=== PATIENT | male | born 1945 | race Caucasian/White ===

== ENCOUNTER 2017-05-24 06:09 | Day surgery (SDC) | payer MEDICARE ==
[~2017-05-24] VITALS: Ht 185.4 cm; Wt 78.5 kg
[~2017-05-24 06:09] MED LIST: AMLO2.5T PO; ASPI-1197 PO; PRAV40TA3 PO
[2017-05-24] MEDS ORDERED: SODIUM CHLORIDE 0.9% 1000ML 1,000 ML IV ONE (06:43)
[2017-05-24 07:02] VITALS: BP 146/78
[2017-05-24] MEDS ORDERED: PROPOFOL 10 MG/ML 20ML VIAL IV ONE ×2 (07:29→07:46)
[2017-05-24] MEDS ORDERED: FENTANYL CITRATE PF 50 MCG/1 ML 2ML VIAL ONE (07:30)
[2017-05-24] MEDS ORDERED: GLYCOPYRROLATE 0.2 MG/ML 5 ML VIAL ONE (07:30)
[2017-05-24] MEDS ORDERED: LIDOCAINE HCL 2% 20ML ONE (07:30)
== END 2017-05-24 08:35 | disposition home or self-care (01) ==
LOC: DAH 06:09
PROVIDERS: ATTEND Internal Medicine Gastroenterology
DX: D12.3 Benign neoplasm of transverse colon (principal); K57.30 Diverticulosis of large intestine without perforation or abscess without bleeding; I10 Essential (primary) hypertension; E78.5 Hyperlipidemia, unspecified; Z80.0 Family history of malignant neoplasm of digestive organs
CPT/HCPCS: 45380; 93005; A4606; J2704 ×2; J3010; J3490 ×2; J7030

== ENCOUNTER → 2019-12-19 | Outpatient (CLI) | payer MEDICARE ==
[~2019-12-19] MED LIST changes: -AMLO2.5T PO; +AMLO2.5T4 PO
== END | disposition home or self-care (01) ==
LOC: SHCH 10:22
PROVIDERS: ATTEND Internal Medicine Cardiovascular Disease
DX: I48.0 Paroxysmal atrial fibrillation (principal)
CPT/HCPCS: 93306; 93356

== ENCOUNTER → 2019-12-29 | Outpatient (CLI) | payer OTHER | END | disposition home or self-care (01) | LOC: OIH 12:12 | PROVIDERS: ATTEND Internal Medicine Cardiovascular Disease | DX: Z13.6 Encounter for screening for cardiovascular disorders (principal) | CPT/HCPCS: 75571 ==

== ENCOUNTER → 2020-01-01 | Outpatient (CLI) | payer MEDICARE ==
[~2020-01-01] MED LIST changes: +REGADENOSON 0.4 MG/5 ML PF SYG IVP SCH
== END | disposition home or self-care (01) ==
LOC: SHCH 11:42
PROVIDERS: ATTEND Internal Medicine Cardiovascular Disease
DX: I21.29 ST elevation (STEMI) myocardial infarction involving other sites (principal); I21.11 ST elevation (STEMI) myocardial infarction involving right coronary artery; I25.10 Atherosclerotic heart disease of native coronary artery without angina pectoris
CPT/HCPCS: 78452; 93017; 96374; A9500 ×2; J2785

== ENCOUNTER 2022-04-15 12:59 | Observation (INO) | payer OTHER ==
[~2022-04-15] VITALS: Ht 185.4 cm; Wt 80.8 kg
[~2022-04-15 12:59] MED LIST changes: -REGADENOSON 0.4 MG/5 ML PF SYG IVP SCH
[2022-04-15 13:27] LABS: BASOPHILS % (AUTO) 0.5 % (0.0-5.0); EOSINOPHILS % (AUTO) 0.6 % (0.0-8.0); HEMATOCRIT 42.4 % (42-54); LYMPHOCYTES % (AUTO) 26.1 % (21.0-51.0); MEAN CORPUSCULAR HEMOGLOBIN 30.9 pg (27.0-33.0); MEAN CORPUSCULAR HGB CONC 35.6 g/dL (32.0-36.0); MEAN CORPUSCULAR VOLUME 86.9 fL (79-99); MONOCYTES % (AUTO) 8.7 % (3.0-13.0); NEUTROPHILS % (AUTO) 63.8 % (40.0-77.0); PLATELET COUNT (AUTO) 325 K/uL (130-400); RED BLOOD CELL COUNT(AUTO) 4.88 MIL/uL (4.50-6.20); RED CELL DISTRIBUTION WIDTH 11.8 % (11.0-15.5); WHITE BLOOD COUNT (AUTO) 12.5 K/uL (4.8-10.8)
[2022-04-15 13:37] LABS: CREATININE 0.9 mg/dL (0.5-1.5); POTASSIUM 3.7 mmol/L (3.5-5.1)
[2022-04-15 13:47] LABS: ALBUMIN 4.2 g/dL (3.5-5.0); MAGNESIUM 2.1 mg/dL (1.80-2.40)
[2022-04-15 13:54] LABS: B-TYPE NATRIURETIC PEPTIDE 86 pg/mL (0-100)
[2022-04-15] MEDS ORDERED: APIX5TAB PO (15:23)
[2022-04-15] MEDS ORDERED: SOTA80TA PO (15:23)
[2022-04-15] MEDS ORDERED: EVOL140P3 SQ (15:23)
[2022-04-15] MEDS ORDERED: AMLO-257 PO (15:23)
[2022-04-15] MEDS ORDERED: EZET10TA48 PO (15:23)
[2022-04-15] MEDS ORDERED: METO-408 PO (15:23)
[2022-04-15 18:28] LABS: THYROID STIMULATING HORMONE 2.43 uIU/mL (0.36-3.74)
[2022-04-15 18:29] LABS: ALCOHOL, BLOOD < 3 mg/dL (0-10)
[2022-04-15 18:54] LABS: APPEARANCE,URINE CLEAR (CLEAR); BILIRUBIN,URINE NEGATIVE (NEGATIVE); COLOR,URINE COLORLESS (YELLOW); GLUCOSE, URINE (UA) NEGATIVE (NEGATIVE); KETONES,URINE NEGATIVE (NEGATIVE); LEUKOCYTE ESTERASE ,URINE NEGATIVE Leu/uL (NEGATIVE); NITRATE,URINE NEGATIVE (NEGATIVE); PH,URINE 6.5 (5.0-8.0); PROTEIN,URINE NEGATIVE (NEGATIVE); SODIUM,URINE RANDOM 26 mmol/l (40-220); UROBILINOGEN,URINE 0.2 mg/dL (0.2-1.0)
[2022-04-15 19:04] LABS: RBC,URINE 0-1 /HPF (0-1); WBC,URINE 0-1 /HPF (0-1)
[2022-04-15] MEDS: SOTALOL HCL 80 MG TABLET PO SCH (19:55)
[2022-04-15] MEDS: METOPROLOL SUCCINATE 25 MG TAB.SR.24H PO SCH (19:55)
[2022-04-15] MEDS: APIXABAN 5 MG TABLET PO SCH (19:55)
[2022-04-15] MEDS ORDERED: DIPHENHYDRAMINE HCL 25 MG CAPSULE PO ONE (21:00)
[2022-04-16] MEDS ORDERED: DIPHENHYDRAMINE HCL 25 MG CAPSULE PO ONE (04:00)
[2022-04-16 05:35] VITALS: BP 150/129
[2022-04-16 07:11] LABS: BASOPHILS % (AUTO) 1.2 % (0.0-5.0); EOSINOPHILS % (AUTO) 2.2 % (0.0-8.0); HEMATOCRIT 43.8 % (42-54); LYMPHOCYTES % (AUTO) 23.8 % (21.0-51.0); MEAN CORPUSCULAR HEMOGLOBIN 30.6 pg (27.0-33.0); MEAN CORPUSCULAR HGB CONC 34.7 g/dL (32.0-36.0); MEAN CORPUSCULAR VOLUME 88.1 fL (79-99); MONOCYTES % (AUTO) 8.8 % (3.0-13.0); NEUTROPHILS % (AUTO) 63.5 % (40.0-77.0); PLATELET COUNT (AUTO) 310 K/uL (130-400); RED BLOOD CELL COUNT(AUTO) 4.97 MIL/uL (4.50-6.20); RED CELL DISTRIBUTION WIDTH 12.1 % (11.0-15.5); WHITE BLOOD COUNT (AUTO) 8.5 K/uL (4.8-10.8)
[2022-04-16 07:38] LABS: ALBUMIN 4.2 g/dL (3.5-5.0); CREATININE 0.7 mg/dL (0.5-1.5); MAGNESIUM 2.1 mg/dL (1.80-2.40); POTASSIUM 3.9 mmol/L (3.5-5.1); TOTAL PROTEIN, SERUM 7.9 g/dL (6.0-8.3)
[2022-04-16 08:15] VITALS: BP 155/78
[2022-04-16] MEDS: METOPROLOL SUCCINATE 25 MG TAB.SR.24H PO SCH (09:40)
[2022-04-16] MEDS: APIXABAN 5 MG TABLET PO SCH (09:41)
[2022-04-16] MEDS: SOTALOL HCL 80 MG TABLET PO SCH (09:42)
[2022-04-16] MEDS ORDERED: METO-408 PO (11:03)
[2022-04-16] MEDS ORDERED: AMLODIPINE 5 MG TAB PO SCH (11:30)
[2022-04-16 12:10] VITALS: BP 136/75
== END 2022-04-16 12:55 | disposition home or self-care (01) ==
LOC: EDH 12:59 → EDHIP 17:45 → 4AH 04-16 06:10
PROVIDERS: ADMIT Internal Medicine; ATTEND Internal Medicine
DX: I48.0 Paroxysmal atrial fibrillation (principal); E87.1 Hypo-osmolality and hyponatremia; I10 Essential (primary) hypertension; D72.829 Elevated white blood cell count, unspecified; R55 Syncope and collapse; I49.9 Cardiac arrhythmia, unspecified; I25.10 Atherosclerotic heart disease of native coronary artery without angina pectoris; E78.5 Hyperlipidemia, unspecified; I49.3 Ventricular premature depolarization; Z79.01 Long term (current) use of anticoagulants; Z79.899 Other long term (current) drug therapy
CPT/HCPCS: 99285; 84443; 83735 ×2; 84484; 80053 ×2; 84300; 83880; 85025 ×2; 83930; 83935; 81001; 36415 ×2; 71045; 93005; 84145; Q0163; G0378 ×19

== ENCOUNTER → 2022-05-30 | Outpatient (CLI) | payer OTHER ==
[~2022-05-30] MED LIST changes: +AEC81 PO; -AMLO2.5T4 PO; +APIX5TAB PO; -ASPI-1197 PO; +CALC-1125 PO; +EVOL140P3 SQ; +EZET10TA48 PO; +FISH1CAP27 PO; +PRAV20TA4 PO; -PRAV40TA3 PO; +UBID50TA3 PO; +VERA360C2 PO; +VITAMIN D; +VITAMIN D PO
== END | disposition home or self-care (01) ==
LOC: RAH 08:21
PROVIDERS: ATTEND Internal Medicine
DX: S32.000A Wedge compression fracture of unspecified lumbar vertebra, initial encounter for closed fracture (principal); M54.50 Low back pain, unspecified; M47.817 Spondylosis without myelopathy or radiculopathy, lumbosacral region; M48.061 Spinal stenosis, lumbar region without neurogenic claudication; X58.XXXA Exposure to other specified factors, initial encounter; Y93.89 Activity, other specified; Y92.89 Other specified places as the place of occurrence of the external cause; Y99.8 Other external cause status
CPT/HCPCS: 72148; 76700

== ENCOUNTER 2024-02-20 06:59 | Day surgery (SDC) | payer OTHER ==
[2024-02-19 12:18] LABS: BASOPHILS # (AUTO) 0.08 K/uL (0.00-0.20); BASOPHILS % (AUTO) 0.9 % (0.0-5.0); EOSINOPHILS % (AUTO) 3.6 % (0.0-8.0); HEMATOCRIT 41.3 % (42-54); IMMATURE GRANULOCYTE ABSOLUTE 0.04 K/uL (0-1); LYMPHOCYTES # (AUTO) 2.1 K/uL (1.0-4.8); LYMPHOCYTES % (AUTO) 24.5 % (21.0-51.0); MEAN CORPUSCULAR HEMOGLOBIN 31.6 pg (27.0-33.0); MEAN CORPUSCULAR HGB CONC 34.1 g/dL (32.0-36.0); MEAN CORPUSCULAR VOLUME 92.6 fL (79-99); MONOCYTES # (AUTO) 0.7 K/uL (0.1-1.0); MONOCYTES % (AUTO) 8.3 % (3.0-13.0); NEUTROPHILS # (AUTO) 5.3 K/uL (1.8-7.7); NEUTROPHILS % (AUTO) 62.2 % (40.0-77.0); PLATELET COUNT (AUTO) 217 K/uL (130-400); RED BLOOD CELL COUNT(AUTO) 4.46 MIL/uL (4.50-6.20); RED CELL DISTRIBUTION WIDTH 12.2 % (11.0-15.5); WHITE BLOOD COUNT (AUTO) 8.4 K/uL (4.8-10.8)
[2024-02-19 12:29] VITALS: BP 159/88; PULSE 69; RESP 18; TEMP 97
[2024-02-19 12:48] LABS: CREATININE 0.9 mg/dL (0.5-1.3); POTASSIUM 4.2 mmol/L (3.5-5.1)
[~2024-02-20] VITALS: Ht 185.4 cm; Wt 81.9 kg
[~2024-02-20 06:59] MED LIST changes: +ALEN70TA80 PO; +DRON400T7 PO; -EZET10TA48 PO; -PRAV20TA4 PO; -UBID50TA3 PO; -VERA360C2 PO; +VITAD50000 PO; -VITAMIN D; -VITAMIN D PO
[2024-02-20 07:24] LABS: CREATININE 0.9 mg/dL (0.5-1.3); POTASSIUM 4.4 mmol/L (3.5-5.1)
== END 2024-02-20 07:50 | disposition home or self-care (01) ==
LOC: DAH 06:59
PROVIDERS: ATTEND Internal Medicine Cardiovascular Disease
DX: I48.19 Other persistent atrial fibrillation (principal); I45.10 Unspecified right bundle-branch block; I10 Essential (primary) hypertension; E78.5 Hyperlipidemia, unspecified; I25.10 Atherosclerotic heart disease of native coronary artery without angina pectoris; I47.10 Supraventricular tachycardia, unspecified; Z79.82 Long term (current) use of aspirin; Z79.01 Long term (current) use of anticoagulants; Z79.899 Other long term (current) drug therapy; Z53.8 Procedure and treatment not carried out for other reasons
CPT/HCPCS: 36415; 80048; 85025; 93005